=== PATIENT | male | born 1995 | race Caucasian/White ===

== ENCOUNTER 2019-08-03 21:51 | Emergency (ER) | payer OTHER ==
[~2019-08-03] VITALS: Ht 182.9 cm; Wt 75.7 kg
[2019-08-03] MEDS ORDERED: ONDANSETRON 4MG/2ML VIAL (J2405) IV ONE (22:30)
[2019-08-03] MEDS ORDERED: ACETAMINOPHEN 325 MG TAB PO ONE (22:30)
[2019-08-03] MEDS ORDERED: NS 2,270 ML in IV 1 EA IV ONE (22:30)
[2019-08-03 23:08] LABS: BASO % 0.3 % (0.0-1.0); EOS % 0.2 % (0.0-3.0); HEMATOCRIT 44.1 % (42.0-52.0); HEMOGLOBIN 15.4 g/dl (13.5-17.5); LYMPH # 0.7 10^3/uL (1.5-5.0); LYMPH % 11.7 % (24.0-44.0); MEAN CORPUSCULAR HEMOGLOBIN 31.6 pg (27.0-33.0); MEAN CORPUSCULAR HGB CONC 34.9 g/dl (32.0-36.5); MEAN CORPUSCULAR VOLUME 90.4 fl (80.0-96.0); MONO # 1.1 10^3/uL (0.0-0.8); MONO % 17.9 % (0.0-5.0); NEUTROPHILS # 4.2 10^3/uL (1.5-8.5); NEUTROPHILS % 69.6 % (36.0-66.0); PLATELET COUNT, AUTOMATED 261 10^3/uL (150-450); RED BLOOD COUNT 4.88 10^6/uL (4.30-6.10); WHITE BLOOD COUNT 6.1 10^3/uL (4.0-10.0)
[2019-08-03 23:41] LABS: ALBUMIN 4.2 GM/DL (3.2-5.2); ALT/SGPT 18 U/L (12-78); BILIRUBIN,DIRECT 0.3 MG/DL (0.0-0.2); BILIRUBIN,TOTAL 0.8 MG/DL (0.2-1.0); BLOOD UREA NITROGEN 14 MG/DL (7-18); CALCIUM LEVEL 8.8 MG/DL (8.5-10.1); CARBON DIOXIDE LEVEL 25 MEQ/L (21-32); CHLORIDE LEVEL 101 MEQ/L (98-107); GLOMERULAR FILTRATION RATE > 60.0 (>60); GLUCOSE, FASTING 104 MG/DL (70-100); POTASSIUM SERUM 3.9 MEQ/L (3.5-5.1); SODIUM LEVEL 134 MEQ/L (136-145); TOTAL PROTEIN 8.1 GM/DL (6.4-8.2)
[2019-08-03 23:48] LABS: INFLUENZA A AMPLIFICATION NEGATIVE (NEGATIVE); INFLUENZA B AMPLIFICATION POSITIVE (NEGATIVE)
[2019-08-04] MEDS ORDERED: OSELTAMIVIR PHOSPHATE 75 MG CAP (TAMIFLU) PO ONE (00:15)
[2019-08-04 01:33] VITALS: BP 118/76
[2019-08-04] MEDS ORDERED: ONDA4TAB6 PO (01:35)
[2019-08-04] MEDS ORDERED: OSEL75CA PO (01:35)
--- NOTE | 2019-08-04 12:02 | REP ---
REASON: Dyspnea and cough. COMPARISON: None. TWO-VIEW CHEST: FINDINGS: The superior mediastinal structures are midline. The cardiac silhouette is unremarkable in size, shape, and position. The diaphragmatic surfaces of the lungs are regular, and the costophrenic angles are clear. The pulmonary erickson are clear. The imaged osseous structures are intact. IMPRESSION: There is no acute cardiopulmonary disease. Unreviewed
== END 2019-08-04 02:00 | disposition home or self-care (01) ==
LOC: M ED 21:51
DX: J10.2 Influenza due to other identified influenza virus with gastrointestinal manifestations (principal); E86.0 Dehydration; Z88.0 Allergy status to penicillin
CPT/HCPCS: 71046; 80048; 80076; 81001; 83605; 85025; 87040; 87502; 87880; 96361; 96374; 99284; J2405